=== PATIENT | female | born 1985 | race Caucasian/White ===

== ENCOUNTER 2018-06-28 18:20 | Inpatient (IN) | payer OTHER ==
--- NOTE | 2018-06-28 21:07 | PN ---
L&D Outpatient: Visit - Reproductive Information Estimated Due Date: 06/17/18 Gestational Age: 41 Weeks and 4 Days : 2 Para: 1 - Reason for Visit Visit Reason: 32 yo who is scheduled for a section in the am .pt presents with some contractions since this am which have subsided. She is very comfortable now . gfm. pt was hoping for a but the baby is breech . pt was recommended a last week but refused at that time. pt is recommended a leeanne but currently had a fullmeal at 6pm and will need to wait at least 6hrs from then. soones would be after midnight . If not in labor woudl probbly be safe to wait until am - Antepartal Records Antepartal Record: Reviewed, Complicated by: - Patient History Patient History Significant: No Review of Systems Constitutional: Comfortable Genitourinary: No Bleeding, No Leaking Fluid Musculoskeletal: No Complaint Neurological: No Headache Movement: Normal L&D Outpatient: Exam - Cervical Exam Cervical Exam: fingertip / thick /no presenting part - Abdominal Exam Abdomen Exam: Non-Tender - Membranes Membrane Status: Intact - Ultrasound/Biophysical Profile Ultrasound Status: Bedside Exam - footling breech described by cnm EFM Findings - External Monitor Findings Baseline Heart Rate: 135 External Monitor Findings: Accelerations Present, Variability Moderate, Baseline Stable Contractions: Irregular L&D Outpatient: Asses/Plan - Discharge Diagnosis Discharge Diagnosis: False Labor, Intact Membranes, Post Dates Plan: Continue Observation - discussed option of home vs continued observation. pt wants to stay till am.
[2018-06-29] MEDS ORDERED: Buffered Lidocaine 1% SYRIN* 1 ML/SYRINGE INTRADERM ONE (01:30)
[2018-06-29] MEDS ORDERED: Lactated Ringers 1000 ML Bag* 1,000 ML IV ONE (01:30)
[2018-06-29] MEDS ORDERED: ceFOXitin 2 GM IVPREMIX* 2 GM/50 ML BAG IVPB ONE (01:30)
[2018-06-29] MEDS ORDERED: Sodium Citrate/Citric Acid* 15 ML UDC PO ONE (01:32)
[2018-06-29 01:55] LABS: ABS Basophils 0.1 10^3/ul (0-0.2); ABS Eosinophils 0.1 10^3/ul (0-0.6); ABS Lymphocytes 2.6 10^3/ul (1.0-4.8); ABS Neutrophils 8.9 10^3/ul (1.5-7.7); ABS Nucleated RBC 0 10^3/ul; Eosinophil % 0.8 %; Hematocrit 43 % (35-47); Hemoglobin 14.5 g/dl (12.0-16.0); Lymphocyte % 20.6 %; Mean Corpuscular HGB Conc 34 g/dl (31-36); Mean Corpuscular Hemoglobin 29 pg (27-31); Mean Corpuscular Volume 87 fL (80-97); Mean Platelet Volume 8.5 fL (7.4-10.4); Nucleated Red Blood Cells % 0.1; Platelet Count 199 10^3/ul (150-450); Red Blood Count 4.95 10^6/ul (4.00-5.40); Red Cell Distribution Width 14 % (10.5-15); White Blood Count 12.8 10^3/ul (3.5-10.8)
[2018-06-29] MEDS ORDERED: Lactated Ringers 1000 ML Bag* 1,000 ML IV SCH ×2 (02:00→04:00)
--- NOTE | 2018-06-29 02:01 | HP ---
General Information - Reason for Visit attempted in labor breech presentation/41 weeks - General Information Maternal Age: 32 Grav: 2 Para: 1 SAB: 0 IEA: 0 Estimated Due Date: 06/17/18 Determined By: Early Ultrasound Maternal Blood Type and Rh: O Positive - Results this Serology/RPR Result: Non-Reactive Rubella Result: Immune HBsAg Result: Negative HIV Result: Negative GBS Culture Result: Negative Past Medical History Delivery History: Hx C/Section Pertinent Past Medical History: See Records Pertinent Past Surgical History: See Records Pertinent Family History: See Records - Antepartal Records Antepartal Records: Reviewed, Uncomplicated Review of Systems Constitutional: Uncomfortable CV Complaint: No Respiratory: Shortness of Breath: No Genitourinary: No Bleeding, No Leaking Fluid Musculoskeletal: Contractions, Abdominal Pain Neurological: No Headache Movement: Normal Exam Allergies/Adverse Reactions: Allergies Penicillins Allergy (Intermediate, Verified 06/27/18 12:12) Hives vancomycin Allergy (Intermediate, Verified 06/27/18 12:13) Anaphylatic Shock Lab Values - Entire Visit: Laboratory Tests 06/29/18 01:36 WBC 12.8 H RBC 4.95 Hgb 14.5 Hct 43 MCV 87 MCH 29 MCHC 34 RDW 14 Plt Count 199 MPV 8.5 Neut % (Auto) 70.2 Lymph % (Auto) 20.6 Phillips % (Auto) 8.0 Eos % (Auto) 0.8 Baso % (Auto) 0.4 Absolute Neuts (auto) 8.9 H Absolute Lymphs (auto) 2.6 Absolute Monos (auto) 1.0 H Absolute Eos (auto) 0.1 Absolute Basos (auto) 0.1 Absolute Nucleated RBC 0 Nucleated RBC % 0.1 - Measurements Height: 5 ft 1 in Weight: 152 lb Weight in lbs: 152.898654 Body Mass Index (BMI): 28.7 Pre- Weight: 124 lb Weight Gained This : 28 lbs and 0 ozs - Exam Breast: Breast Exam Deferred Extremities: No Edema Heart: Normal Rhythm/Heart Sounds HEENT: No Significant Findings Lungs: Clear Bilaterally Targeted Exam Findings Cervical Exam: 4cm Station: High Presenting Part: Breech Membrane Status: Intact EFM Findings - External Monitor Findings External Monitor Findings: Accelerations Present, Variability Moderate Contractions: Regular, Moderate, 45-90 Seconds Assessment/Plan - Assessment pt is post dates in labor with a breech presentation - Obstetrical Risk Factors Obstetrical Risk Factors: Post-Dates, Previous C/Section in Labor, Breech - Plan Plan: Expedite C/S Delivery - risks benefits alternatives and indications discussed
[2018-06-29] MEDS ORDERED: fentaNYL* 50 MCG/ML 2 ML VIAL (100 MCG VIAL) IV PRN (02:56)
[2018-06-29] MEDS ORDERED: Ondansetron INJ* 2 MG/ML VIAL IV PRN ×2 (02:56→02:57)
[2018-06-29] MEDS ORDERED: Naloxone* 0.4 MG/ML 1 ML VIAL IV PRN ×2 (02:56→02:57)
[2018-06-29] MEDS ORDERED: oxyCODONE/Acetamin 5/325 MG* TAB PO PRN ×4 (02:57→18:30)
[2018-06-29] MEDS ORDERED: Nalbuphine* 10 MG/ML 1 ML VIAL IV PRN (02:57)
[2018-06-29] MEDS ORDERED: diPHENhydraMINE IV* 50 MG/ML 1 ml VIAL (BENADRYL) IV PRN (02:57)
[2018-06-29] MEDS ORDERED: Glycerin ADULT SUPP PR PRN (03:25)
[2018-06-29] MEDS ORDERED: Acetaminophen TAB* 325 MG PO PRN (03:25)
[2018-06-29] MEDS ORDERED: Witch Hazel PAD* JAR TOPICAL PRN (03:25)
[2018-06-29] MEDS ORDERED: Dibucaine 1% 28.35 GM TUBE PR PRN (03:25)
[2018-06-29] MEDS ORDERED: Oxytocin in LR* 20 UNITS/1,000 ML BAG IVPB SCH (04:00)
[2018-06-29] MEDS: Docusate CAP* 100 MG PO SCH ×3 (08:58→21:14)
[2018-06-29] MEDS: Simethicone TAB* 80 MG TAB.CHEW PO SCH ×4 (08:58→21:14)
[2018-06-29] MEDS: Ketorolac INJ* 30 MG/ML 1 ML VIAL IV PRN ×2 (08:59→17:06)
[2018-06-29] MEDS ORDERED: Tetan/Diph/Pertus SYR(Tdap)* 0.5 ML SYR(BOOSTRIX) use SYR IM ONE (09:00)
--- NOTE | 2018-06-29 10:12 | OP ---
DATE OF OPERATION: 06/29/18 - ROOM #103 DATE OF : 87 SURGEON: Erik Oviedo MD BACTERIOLOGY TECHNICIAN: Dr. Morales. ANESTHESIA: Spinal. PRE-OP DIAGNOSIS: Failed breech and labor, postdate procedures. POST-OP DIAGNOSIS: Failed breech and labor, postdate procedures. OPERATIVE PROCEDURE: Low transverse section. FINDINGS: Include a viable female. Apgars 9 and 9. Weight was 7 pounds 14 ounces. This is a 32-year-old 2, para 1, with 1 prior section, who presented in early labor to Labor and Delivery and found to be in breech position. She had planned a . She was observed and progressed up to 4 cm and decision was made to proceed with due to the fact that she still remained breech. The above findings were noted at the time of surgery. Normal appearing fallopian tubes and ovaries. ESTIMATED BLOOD LOSS: 600 cc. SPECIMEN: None. COMPLICATIONS: None. DESCRIPTION OF PROCEDURE: The patient was identified, procedure identified as a low transverse section. The patient was taken to the operating room, prepped and draped in the usual fashion in the left lateral recumbent position under spinal anesthesia. Pfannenstiel incision was made in the abdomen, carried down through fat, fascia and peritoneum. Transverse incision was made in the lower uterine segment and extended laterally using blunt dissection. The was delivered through the incision with ease. Once the skin incision had been extended slightly, this was done in the breech extraction manner. Cord was doubly clamped and cut and the infant was handed to the awaiting hyperion developer. Cord blood was obtained. Placenta delivered spontaneously. The uterus was wiped out with a wet lap sponge. The uterine incision was then closed using 0 Polysorb in a running fashion. A second layer was used to imbricate the first layer. Good hemostasis was verified. Uterus was placed back in the abdominal cavity. Gutters were wiped out with a wet lap sponge. Good hemostasis was verified. The peritoneum was closed using 3-0 Polysorb in a running fashion. Hemostasis achieved in the subrectus layers. The fascia was closed using 0 Polysorb in a running fashion. Good hemostasis achieved in the subcu. Copious irrigation was utilized and suctioned out and skin was closed with 4-0 Monocryl in a subcuticular fashion. All sponge and instrument counts were correct and the patient returned to the recovery room in stable condition. [id number]/[facility] #: [id number] MELISSA
[2018-06-29] MEDS ORDERED: Zolpidem TAB* 5 MG PO PRN (21:00)
[2018-06-29] MEDS: Ibuprofen TAB* 600 MG PO PRN (23:18)
[2018-06-30] MEDS: Ibuprofen TAB* 600 MG PO PRN ×4 (05:24→23:48)
[2018-06-30 07:22] LABS: ABS Basophils 0.1 10^3/ul (0-0.2); ABS Eosinophils 0.1 10^3/ul (0-0.6); ABS Lymphocytes 1.5 10^3/ul (1.0-4.8); ABS Monocytes 0.9 10^3/ul (0-0.8); ABS Neutrophils 12.3 10^3/ul (1.5-7.7); ABS Nucleated RBC 0 10^3/ul; Eosinophil % 0.8 %; Hematocrit 35 % (35-47); Hemoglobin 11.9 g/dl (12.0-16.0); Lymphocyte % 10.2 %; Mean Corpuscular HGB Conc 34 g/dl (31-36); Mean Corpuscular Hemoglobin 30 pg (27-31); Mean Corpuscular Volume 88 fL (80-97); Mean Platelet Volume 7.9 fL (7.4-10.4); Nucleated Red Blood Cells % 0; Platelet Count 161 10^3/ul (150-450); Red Blood Count 4.02 10^6/ul (4.00-5.40); Red Cell Distribution Width 14 % (10.5-15); White Blood Count 14.9 10^3/ul (3.5-10.8)
[2018-06-30] MEDS ORDERED: Ferrous Gluconate TAB* 324 MG TAB PO SCH (09:00)
[2018-06-30] MEDS: Docusate CAP* 100 MG PO SCH ×3 (09:04→20:47)
[2018-06-30] MEDS: Simethicone TAB* 80 MG TAB.CHEW PO SCH ×4 (09:04→20:47)
[2018-07-01] MEDS: Ibuprofen TAB* 600 MG PO PRN ×3 (06:14→17:55)
[2018-07-01] MEDS: Docusate CAP* 100 MG PO SCH ×3 (09:10→19:29)
[2018-07-01] MEDS: Simethicone TAB* 80 MG TAB.CHEW PO SCH ×4 (09:10→19:29)
[2018-07-02] MEDS: Ibuprofen TAB* 600 MG PO PRN ×2 (02:02→09:11)
[2018-07-02] MEDS: Simethicone TAB* 80 MG TAB.CHEW PO SCH (09:11)
[2018-07-02] MEDS: Docusate CAP* 100 MG PO SCH (09:11)
[2018-07-02 17:27] VITALS: BP 116/68
== END 2018-07-02 14:40 | disposition home or self-care (01) | DRG 540 ==
LOC: MCHOBOUT 18:20 → MCHOB 06-29 01:26
PROVIDERS: ADMIT Obstetrics & Gynecology; ATTEND Obstetrics & Gynecology
PROC: 4A1HXCZ Monitoring of Products of Conception, Cardiac Rate, External Approach (ICD-10-PCS; 2018-06-29)
PROC: 10D00Z1 Extraction of Products of Conception, Low, Open Approach (ICD-10-PCS; principal; 2018-06-29 02:13)
DX: O32.8XX0 Maternal care for other malpresentation of fetus, not applicable or unspecified (principal); O48.0 Post-term pregnancy; O34.211 Maternal care for low transverse scar from previous cesarean delivery; O77.0 Labor and delivery complicated by meconium in amniotic fluid; Z3A.41 41 weeks gestation of pregnancy; Z37.0 Single live birth; Z88.1 Allergy status to other antibiotic agents; Z88.0 Allergy status to penicillin
CPT/HCPCS: 36415; 85025; A9270-GY; J0694; J1885; J2405; J2590